=== PATIENT | female | born 1995 | race Caucasian/White ===

== ENCOUNTER 2024-10-03 07:30 | Emergency (ER) | payer OTHER, SELFPAY ==
[2024-10-03] VITALS (7 sets, daily range): BP systolic 105–143; BP diastolic 76–98; BMI 39.5
--- NOTE | 2024-10-03 07:38 | ED.GENMED ---
History of Present Illness
General
Chief Complaint: Abdominal Pain
Source: patient and records
Exam Limitations: none
Time Seen by Provider: 10/03/24 07:38
Nursing documentation reviewed up to this point in time: agreed with
History of Present Illness
History of Present Illness:
29-year-old female presents with left lower abdominal and pelvic pain acute on chronic issue history of endometriosis treated by BOX [employer]ILDER with hormonal control which she has not able to get her menstrual cycle, pain became worse in the past 12
hours sharp into her back and vagina, no fevers mild nausea without vomiting she had an appendectomy, she is never had a diagnostic scope to confirm endometriosis she denies
Past History
Past History
ED Past Medical History: Other (Endometriosis)
ED Past Surgical History: Appendectomy
Social History
Tobacco: Smoker
Alcohol: None
Drug: None
Living: with family
Employment: Employed
Review of Systems
Review of Systems
All Other Systems: Not applicable
Constitutional: Denies fever or fatigue
EENT: Reports no symptoms
Respiratory: Reports no symptoms
Cardiac: Reports no symptoms
ABD/GI: Reports abdominal pain and nausea; Denies vomiting, diarrhea or bloody stools
: Reports no symptoms
Musculoskeletal: Reports no symptoms
Skin: Reports no symptoms
Phy Exam
Physical Exam
Physical Exam:
Physical Exam
General: no apparent distress, not acutely ill
Neck: No jaundice
Heart: s1/s2 regular rate and rhythm, no murmur. equal radial pulses.
Lungs: no acute respiratory distress. clear bilaterally
Abdomen: Soft minimal left lower abdominal tenderness no guarding or rebound
Neuro: alert and oriented. no focal neurological deficits
Skin: no rash
Psychiatric: well kept. interactive and cooperative
Extremities: no edema
Course
Orders/Labs/Results
Orders:
Orders
10/03/24 08:02
IV Insert/Care/Rem.- Treatment PRN
Complete Blood Count/With Diff Urgent
Comprehensive Metabolic Panel Urgent
ESR [Erythrocyte Sed Rate] Urgent
HCG, Serum Qualitative Screen Urgent
Urinalysis Reflex To Culture Urgent
HYDROmorphone [Dilaudid] 0.5 mg IV NOW STA
10/03/24 08:03
CRP [C-Reactive Protein] Urgent
Test Result ONCE
US Pelvis Only (non-obstetric) Urgent
Comment:
Reason For Exam: left adnexal pain,
Vital Signs
Initial and Last Documented VS:
Initial Vital Signs
Temp Pulse Resp BP Pulse Ox
98.3 F 110 16 143/81 100
10/03/24 07:31 10/03/24 07:31 10/03/24 07:31 10/03/24 07:31 10/03/24 07:31
Last Documented Vital Signs
Temp Pulse Resp BP Pulse Ox
98.3 F 110 16 143/81 100
10/03/24 07:31 10/03/24 07:31 10/03/24 07:31 10/03/24 07:31 10/03/24 07:31
MDM/Problems Addressed
Differential Diagnosis Includes:
Ovarian cyst torsion ectopic endometriosis less likely diverticulitis or bowel obstruction
MDM/Problems Addressed:
Left pelvic pain
Chronic conditions affecting care: Previous abdomnial surgery and Other (Endometriosis)
Acute Exacerbation and/or Progression of Chronic Illness: Previous abdomnial surgery and Other (Endometriosis)
*Radiology
Radiology exam reviewed: radiology read reviewed
*Pulse Oximetry
Patient hypoxic: no
*Critical Care Note
Total Time (30-74mins, 75-104mins- exclusive of procedures): Not Applicable
ED Attending Note
-
Portions of this chart may have been created with voice recognition software.� Occasional wrong word or��sound alike� substitutions may have occurred due to the inherent limitations of voice recognition software.
Discharge Plan
Departure
Prescriptions:
No Action
escitalopram oxalate 20 MG tablet
20 mg PO DAILY
norethindrone-e.estradiol-iron [] 1 EACH tablet
1 ea PO DAILY
Interventions
Interventions:
*Risk Screen - Suicide Last Done: 10/03/24 07:31
*General Assessment Last Done: 10/03/24 07:31
*Neglect/Abuse Screening Last Done: 10/03/24 07:31
Discharge Date and Time
Print Language: ROMANIAN
[2024-10-03] MEDS: DILAUDID 0.5 MG IV ×2 (08:20→14:55)
[2024-10-03 08:26] LABS: % Basophils 0.3 % (0-2); % Eosinophils 4.5 % (0-6); % Immature Granulocytes 0.5 % (0-0.5); % Lymphocytes 25.9 % (20.5-51.1); % Neutrophils 62.8 % (42.2-75.2); Absolute Eosinophils 0.6 10^3/uL (0-0.7); Absolute Immature Granulocytes 0.1 10^3/uL (0-0.05); Absolute Lymphocytes 3.3 10^3/uL (1.2-3.4); Absolute Monocytes 0.8 10^3/uL (0.1-0.6); Absolute Neutrophils 7.9 10^3/uL (1.4-6.5); Hematocrit 36.7 % (37.0-47.0); Hemoglobin 12.9 g/dL (12.0-16.0); Mean Corp Hgb Conc. 35.1 g/dL (33.0-37.0); Mean Corpuscular Hgb 29.9 pg (27.0-31.0); Mean Corpuscular Volume 85.2 fL (81.0-99.0); Mean Platelet Volume 8.8 fL (7.4-10.4); Nucleated Red Blood Cells % 0 %; Platelet Count 337 10^3/uL (130-400); Red Blood Cell Count 4.31 10^6/uL (4.20-5.40); Red Cell Dist. Width 12.3 % (11.5-14.5); White Blood Cell Count 12.6 10^3/uL (4.8-10.8)
[2024-10-03 08:55] LABS: Urine Albumin Trace (Neg - Trace); Urine Bilirubin Negative (Negative); Urine Character Very Cloudy (Clear); Urine Color Yellow; Urine Glucose Negative (Negative); Urine Ketone Negative (Negative); Urine Leukocyte 1+ (Negative); Urine Nitrite Negative (Negative); Urine Occult Blood 4+ (Negative); Urine Specific Gravity 1.015 (<1.030); Urine Urobilinogen Negative (Neg - 1+)
[2024-10-03 08:55] LABS: HCG, Serum Qualitative Screen Negative
[2024-10-03 08:59] LABS: ALT (SGPT) 25 U/L (0-35); AST (SGOT) 23 U/L (14-36); Albumin 4.4 g/dl (3.5-5.0); Alkaline Phosphatase 69 U/L (38-126); Blood Urea Nitrogen 10 mg/dl (7-17); Calcium 9.4 mg/dl (8.4-10.2); Carbon Dioxide 17 mmol/L (22-30); Chloride 106 mmol/L (98-107); Estimated Creatinine Clearance > 125 ml/min; Glucose 124 mg/dl (70-99); Potassium 4.3 mmol/L (3.5-5.1); Sodium 141 mmol/L (135-145); Total Bilirubin 0.2 mg/dl (0.2-1.3); Total Protein 6.9 g/dl (6.3-8.2); eGFR > 60.00
[2024-10-03 09:02] LABS: Erythrocyte Sed Rate 20 mm/hour (0-20)
[2024-10-03 09:25] LABS: Urine Bacteria Few (Negative); Urine Red Blood Cell 50-60 /HPF (0-2); Urine Squamous Cell 0-2 /LPF (Few); Urine White Cell 0-2 /HPF (0-5)
[2024-10-03] MEDS: NSS 1000 IV (10:03)
[2024-10-03] MEDS: TORADOL 30 MG IV (10:04)
--- NOTE | 2024-10-03 13:02 | ED.GENMED ---
History of Present Illness
<Chucky Salgado DO - Last Filed: 10/05/24 21:17>
General
Chief Complaint: Abdominal Pain
Time Seen by Provider: 10/03/24 07:38
History of Present Illness
History of Present Illness:
.
Past History
<Chucky Salgado, DO - Last Filed: 10/05/24 21:17>
Past History
ED Past Medical History: Other (Endometriosis)
ED Past Surgical History: Appendectomy
Social History
Tobacco: Smoker
Alcohol: None
Drug: None
Living: with family
Employment: Employed
Phy Exam
<Chucky Salgado DO - Last Filed: 10/05/24 21:17>
Physical Exam
Physical Exam:
.
Course
<Chucky Salgado, DO - Last Filed: 10/05/24 21:17>
Orders/Labs/Results
Orders:
Orders
10/03/24 08:02
IV Insert/Care/Rem.- Treatment PRN
HYDROmorphone [Dilaudid] 0.5 mg IV NOW STA
10/03/24 08:03
Test Result ONCE
US Pelvis W Transvag Combined Urgent
Reason For Exam: left adnexal pain,
10/03/24 08:12
CRP [C-Reactive Protein] Urgent
Comprehensive Metabolic Panel Urgent
HCG, Serum Qualitative Screen Urgent
10/03/24 08:13
Complete Blood Count/With Diff Urgent
ESR [Erythrocyte Sed Rate] Urgent
10/03/24 08:18
Urinalysis Reflex To Culture Urgent
Date Specimen was Collected: 10/03/24
Time Specimen was Collected: 08:14
Urine Microscopic Reflex Cult Urgent
Urine Culture Urgent
RAIMUNDO Source: U
Specimen Description:
Date Specimen was Collected: 10/03/24
Time Specimen was Collected: 08:14
10/03/24 09:38
0.9% Sodium Chloride 1000 ml [Nss] 1,000 ml IV BOLUS
Ketorolac [Toradol] 30 mg IV NOW STA
10/03/24 13:10
CT Abd/pel Without Iv Or Oral Urgent
Comment:
Reason For Exam: hematuria pain
10/03/24 14:49
HYDROmorphone [Dilaudid] 0.5 mg IV NOW STA
Abnormal Lab Results
10/03/24 10/03/24 10/03/24
08:12 08:13 08:18
WBC 12.6 H 10^3/uL
(4.8-10.8)
Hct 36.7 L %
(37.0-47.0)
Abs Immat Gran (auto) 0.1 H 10^3/uL
(0-0.05)
Absolute Neuts (auto) 7.9 H 10^3/uL
(1.4-6.5)
Absolute Monos (auto) 0.8 H 10^3/uL
(0.1-0.6)
Carbon Dioxide 17 L mmol/L
(22-30)
Glucose 124 H mg/dl
(70-99)
C-Reactive Protein 16.90 H mg/L
(0.0-10.00)
Ur Occult Blood Reflex 4+ A
(Negative)
Leukocyte Esterase Rfl 1+ A
(Negative)
Urine RBC 50-60 A /HPF
(0-2)
Urine Bacteria (Reflex) Few A
(Negative)
10/03/24 08:13
10/03/24 08:12
Vital Signs
Initial and Last Documented VS:
Initial Vital Signs
Temp Pulse Resp BP Pulse Ox
98.3 F 110 16 143/81 100
10/03/24 07:31 10/03/24 07:31 10/03/24 07:31 10/03/24 07:31 10/03/24 07:31
Last Documented Vital Signs
Temp Pulse Resp BP Pulse Ox
98.3 F 97 16 121/84 98
10/03/24 07:31 10/03/24 13:02 10/03/24 13:02 10/03/24 14:53 10/03/24 14:53
<Matt Key, DO - Last Filed: 10/03/24 14:53>
Orders/Labs/Results
Orders:
Orders
10/03/24 08:02
IV Insert/Care/Rem.- Treatment PRN
HYDROmorphone [Dilaudid] 0.5 mg IV NOW STA
10/03/24 08:03
Test Result ONCE
US Pelvis W Transvag Combined Urgent
Reason For Exam: left adnexal pain,
10/03/24 08:12
CRP [C-Reactive Protein] Urgent
Comprehensive Metabolic Panel Urgent
HCG, Serum Qualitative Screen Urgent
10/03/24 08:13
Complete Blood Count/With Diff Urgent
ESR [Erythrocyte Sed Rate] Urgent
10/03/24 08:18
Urinalysis Reflex To Culture Urgent
Date Specimen was Collected: 10/03/24
Time Specimen was Collected: 08:14
Urine Microscopic Reflex Cult Urgent
Urine Culture Urgent
RAIMUNDO Source: U
Specimen Description:
Date Specimen was Collected: 10/03/24
Time Specimen was Collected: 08:14
10/03/24 09:38
0.9% Sodium Chloride 1000 ml [Nss] 1,000 ml IV BOLUS
Ketorolac [Toradol] 30 mg IV NOW STA
10/03/24 13:10
CT Abd/pel Without Iv Or Oral Urgent
Comment:
Reason For Exam: hematuria pain
10/03/24 14:49
HYDROmorphone [Dilaudid] 0.5 mg IV NOW STA
Abnormal Lab Results
10/03/24 10/03/24 10/03/24
08:12 08:13 08:18
WBC 12.6 H 10^3/uL
(4.8-10.8)
Hct 36.7 L %
(37.0-47.0)
Abs Immat Gran (auto) 0.1 H 10^3/uL
(0-0.05)
Absolute Neuts (auto) 7.9 H 10^3/uL
(1.4-6.5)
Absolute Monos (auto) 0.8 H 10^3/uL
(0.1-0.6)
Carbon Dioxide 17 L mmol/L
(22-30)
Glucose 124 H mg/dl
(70-99)
C-Reactive Protein 16.90 H mg/L
(0.0-10.00)
Ur Occult Blood Reflex 4+ A
(Negative)
Leukocyte Esterase Rfl 1+ A
(Negative)
Urine RBC 50-60 A /HPF
(0-2)
Urine Bacteria (Reflex) Few A
(Negative)
10/03/24 08:13
10/03/24 08:12
Vital Signs
Initial and Last Documented VS:
Initial Vital Signs
Temp Pulse Resp BP Pulse Ox
98.3 F 110 16 143/81 100
10/03/24 07:31 10/03/24 07:31 10/03/24 07:31 10/03/24 07:31 10/03/24 07:31
Last Documented Vital Signs
Temp Pulse Resp BP Pulse Ox
98.3 F 97 16 121/84 98
10/03/24 07:31 10/03/24 13:02 10/03/24 13:02 10/03/24 14:53 10/03/24 14:53
<Chucky Salgado, DO - Last Filed: 10/05/24 21:17>
*Critical Care Note
Total Time (30-74mins, 75-104mins- exclusive of procedures): Not Applicable
<Chucky Salgado, DO - Last Filed: 10/05/24 21:17>
Update Note
Update Note:
Update, labs noted urine noted culture pending ultrasound report noted
Patient appears comfortable does have hematuria pain was sharp this all could be endometriosis perhaps a stone will check stone search, will need outpatient follow-up either with SOCIAL SERVICE TECHNICIAN urology pending the result of the scan
<Matt Key, DO - Last Filed: 10/03/24 14:53>
Update Note
Update Note:
Update, labs noted urine noted culture pending ultrasound report noted
Patient appears comfortable does have hematuria pain was sharp this all could be endometriosis perhaps a stone will check stone search, will need outpatient follow-up either with SOCIAL SERVICE TECHNICIAN urology pending the result of the scan
2:50 PM care of patient was transitioned pending CT. CT consistent with obstructive kidney stone. Patient feels comfortable going home. Discussed pain control and follow-up with urology
ED Attending Note
<Chucky Salgado, DO - Last Filed: 10/05/24 21:17>
-
Portions of this chart may have been created with voice recognition software.� Occasional wrong word or��sound alike� substitutions may have occurred due to the inherent limitations of voice recognition software.
Discharge Plan
Departure
Patient Disposition: Home (Routine Discharge)
Date of Disposition: 10/03/24
Time of Disposition: 13:12
Patient with high blood pressure during this ER visit?: No
Condition: Good
Discharge Problem:
Kidney stone on left side
Instructions: Kidney Stone, Adult ED
Prescriptions:
New
ibuprofen 600 mg tablet
600 mg PO Q6H PRN (Reason: fever or pain) Qty: 20 0RF
oxycodone-acetaminophen [Percocet] 5-325 mg tablet
1 tab PO Q6HPRN PRN (Reason: pain) Qty: 10 0RF
tamsulosin [Flomax] 0.4 mg Capsule
0.4 mg PO DAILY Qty: 14 0RF
diclofenac potassium 50 mg tablet
50 mg PO BID Qty: 20 0RF
ondansetron 4 mg Tablet,Disintegrating
4 mg PO BIDPRN PRN (Reason: nausea/vomiting) Qty: 10 0RF
oxycodone 5 mg tablet
5 mg PO Q8H PRN (Reason: Pain) Qty: 14 0RF
No Action
norethindrone-e.estradiol-iron [Aurovela Fe 1-20 (28)] 1 mg-20 mcg (21)/75 mg (7) tablet
1 tab PO QPM
lisdexamfetamine 40 mg capsule
40 mg PO DAILY
Rx Instructions:
10/03/24: filled #30/30 day supply on 09/19/24 at [place] [id number] [[id number]]
[facility] Multivitamin
1 tab PO DAILY
cetirizine 10 mg Tablet
10 mg PO HS
ibuprofen 200 mg Tablet
600 mg PO PRN PRN (Reason: pain)
lorazepam 1 mg tablet
1 mg PO DAILYPRN PRN (Reason: anxiety )
Rx Instructions:
10/03/24: filled 30 tabs/30 day supply on 05/31/24 at [place] [id number] [[id number]]
Airborne Gummy 250-11.66 mg Tablet,Chewable
1 tab PO DAILY
Referrals:
Matt Landaverde MD [Active] -
Sol Sanchez MD [Family Provider] -
Activity Restrictions/Additional Instructions:
Please return for any worsening symptoms.
You may return at any time if you have further concerns.
Please follow up with your doctor at the first available appointment, preferably this week.
Please make an appointment to see the urologist.
Thank you for choosing [facility].
Interventions
Interventions:
*Risk Screen - Suicide Last Done: 10/03/24 07:31
*General Assessment Last Done: 10/03/24 07:31
*Neglect/Abuse Screening Last Done: 10/03/24 07:31
ED- Fall Risk Assessment Last Done: 10/03/24 08:27
*ED COVID-19 Vaccine History Last Done: 10/03/24 08:27
*Nursing Disposition Last Done: 10/03/24 15:22
QV-Cfygkb-Edxlkowcju Assessment Last Done: 10/03/24 08:30
Discharge Date and Time
Discharge Date/Time: 10/03/24 15:22
Print Language: TUVALUAN
== END 2024-10-03 15:22 | disposition home or self-care (01) ==
LOC: EMR 07:30
PROVIDERS: EMERGENCY PHYSICIAN Emergency Medicine; FAMILY PHYSICIAN Internal Medicine
DX: N20.0 Calculus of kidney (principal); F17.200 Nicotine dependence, unspecified, uncomplicated
CPT/HCPCS: 99285; 96374; 96375; 96361; 96376; 74176; 76830; 76856; 80053; 81003; 81015; 84703; 85025; 85652; 86140; 87086

== ENCOUNTER 2024-10-08 18:56 | Inpatient (IN) | payer OTHER, SELFPAY ==
[2024-10-08 14:53] VITALS: BP 182/103
[2024-10-08] MEDS: NSS 1000 IV (15:52)
[2024-10-08] MEDS: TORADOL 30 MG IV (15:52)
[2024-10-08 16:00] LABS: Urine Albumin Negative (Neg - Trace); Urine Bilirubin Negative (Negative); Urine Character Clear (Clear); Urine Color Yellow; Urine Glucose Negative (Negative); Urine Ketone Negative (Negative); Urine Leukocyte 1+ (Negative); Urine Nitrite Negative (Negative); Urine Occult Blood 4+ (Negative); Urine Urobilinogen Negative (Neg - 1+)
[2024-10-08 16:04] VITALS: BP 136/90; BMI 39.2
[2024-10-08 16:18] LABS: % Basophils 0.4 % (0-2); % Eosinophils 3.5 % (0-6); % Immature Granulocytes 0.3 % (0-0.5); % Lymphocytes 20.7 % (20.5-51.1); % Monocytes 6.6 % (1.7-9.3); % Neutrophils 68.5 % (42.2-75.2); Absolute Basophils 0.1 10^3/uL (0-0.2); Absolute Eosinophils 0.5 10^3/uL (0-0.7); Absolute Lymphocytes 2.8 10^3/uL (1.2-3.4); Absolute Monocytes 0.9 10^3/uL (0.1-0.6); Absolute Neutrophils 9.4 10^3/uL (1.4-6.5); Hematocrit 37.2 % (37.0-47.0); Hemoglobin 12.9 g/dL (12.0-16.0); Mean Corp Hgb Conc. 34.7 g/dL (33.0-37.0); Mean Corpuscular Hgb 30.3 pg (27.0-31.0); Mean Corpuscular Volume 87.3 fL (81.0-99.0); Mean Platelet Volume 8.6 fL (7.4-10.4); Nucleated Red Blood Cells % 0 %; Platelet Count 305 10^3/uL (130-400); Red Blood Cell Count 4.26 10^6/uL (4.20-5.40); Red Cell Dist. Width 12.3 % (11.5-14.5); White Blood Cell Count 13.7 10^3/uL (4.8-10.8)
[2024-10-08 16:21] LABS: Urine Bacteria Few (Negative); Urine Red Blood Cell 30-40 /HPF (0-2)
--- NOTE | 2024-10-08 16:26 | ED.GENMED ---
History of Present Illness
General
Chief Complaint: Flank Pain
Source: patient
Time Seen by Provider: 10/08/24 15:40
History of Present Illness
History of Present Illness:
29-year-old female, recently diagnosed with a left distal ureteral kidney stone 5 days ago presenting back to the emergency department for continued left flank pain that radiates down into the groin area and unrelieved with the medication she was
prescribed to go home with including diclofenac, oxycodone and Flomax. Patient states that she did feel little bit of chills today but also notes that her room was quite cold, unaware of any fevers despite having a low-grade temperature of 99.8
here. Notes she really has not eaten or drank much today as well. Last medications were taken around 9 AM. No other concerns.
Past History
Past History
ED Past Medical History: Other (Endometriosis)
ED Past Surgical History: Appendectomy
Social History
Tobacco: Smoker
Alcohol: None
Drug: None
Personal: Single
Living: with family
Employment: Employed
Review of Systems
Review of Systems
All Other Systems: ROS reviewed and negative except as documented in HPI and ROS
Phy Exam
Physical Exam
Physical Exam:
GENERAL: Alert , appears uncomfortable
EYE: clear conjunctiva b/l
HEAD: NCAT
ENT: mmm.
CARDIAC: Regular rate and rhythm .
LUNGS: Clear breath sounds bilaterally, no acute respiratory distress, no wheezes/rales/rhonchi
ABDOMEN: Soft, mild left lower abd ttp, no r/g, moderate left cvat
NEUROLOGICAL: Alert and oriented
SKIN: Warm and dry, skin intact.
MUSCULOSKELETAL: No edema, well perfused.
PSYCH: Normal and appropriate interaction.
Scores
Heart Failure Risk
Heart Failure Risk Score: Not Applicable
Heart Score for Chest Pain Patients
STEMI patient?: Not applicable
Withdrawal Assessment of Alcohol
Withdrawal Assessment Completed?: Not applicable
Course
Orders/Labs/Results
Orders:
Orders
10/08/24 15:41
0.9% Sodium Chloride 1000 ml [Nss] 1,000 ml IV BOLUS
Ketorolac [Toradol] 30 mg IV NOW STA
10/08/24 15:42
CT Abd/pel Without Iv Or Oral Urgent
Comment:
Reason For Exam: flank pain, known kidney stone, fever
Test Result ONCE
10/08/24 15:46
Complete Blood Count/With Diff Urgent
Comprehensive Metabolic Panel Urgent
HCG, Serum Qualitative Screen Urgent
Lactic Acid Q4H
Comment: CANCEL 2nd LACTIC ACID IF 1st LACTIC ACID IS LESS THAN 2
Lipase Urgent
Urinalysis Reflex To Culture Urgent
Date Specimen was Collected: 10/08/24
Time Specimen was Collected: 15:45
Urine Microscopic Reflex Cult Urgent
Urine Culture Urgent
RAIMUNDO Source: U
Specimen Description:
Date Specimen was Collected: 10/08/24
Time Specimen was Collected: 15:45
10/08/24 17:00
Morphine Sulfate 2 mg IV NOW STA
10/08/24 18:27
CefTRIAXone [Rocephin] 1,000 mg IV NOW STA
10/08/24 18:44
Lorazepam [Ativan] 1 mg PO DAILYPRN PRN
10/08/24 18:45
Admit/Transfer Patient As Directed
Co-Sign Provider:
Level of Care: Inpatient admission
Assign to:: Medical/Surgical
Physician / Group: hospitalist
Diagnosis: Urolithiasis
Reason for Hospitalization: kidney stone
Expected length of stay greater than two midnights?: Yes
ELOS- Estimated Length of Stay in days: 2
I certify the patient meets the requirements for IP care: Yes
PRN Pain Medication Management As Directed
May give lesser potent ordered pain med per pt: Yes
preference::
Protocol:: Medication orders for pain may be administered in a
manner that supports deferring to patient preference
when the pt is:
- Requesting an ordered lesser potent pain medication.
Least to most potent pain medications are defined
as: acetaminophen < NSAID < tramadol < opioids
(morphine, oxycodone, hydromorphone).
- Requesting a lesser dose of the same medication IF
ORDERED.
- Requesting a less intrusive route of administration
if both routes are prescribed by the provider (PO <
IV).
10/08/24 18:46
Code Status As Directed
Resuscitation Status: Full Code
10/08/24 22:00
Cetirizine HCl [Zyrtec] 10 mg PO HS
10/09/24 08:00
Tamsulosin [Flomax] 0.4 mg PO DAILY
lisdexamfetamine 40 mg PO DAILY
10/09/24 18:00
norethindrone-e.estradiol-iron [Aurovela Fe 1-20 (28)] 1 tablet PO QPM
Abnormal Lab Results
10/08/24
15:46
WBC 13.7 H 10^3/uL
(4.8-10.8)
Absolute Neuts (auto) 9.4 H 10^3/uL
(1.4-6.5)
Absolute Monos (auto) 0.9 H 10^3/uL
(0.1-0.6)
Glucose 112 H mg/dl
(70-99)
Ur Occult Blood Reflex 4+ A
(Negative)
Leukocyte Esterase Rfl 1+ A
(Negative)
Urine RBC 30-40 A /HPF
(0-2)
Urine WBC (Reflex) 11-15 A /HPF
(0-5)
Urine Bacteria (Reflex) Few A
(Negative)
10/08/24 15:46
10/08/24 15:46
Vital Signs
Initial and Last Documented VS:
Initial Vital Signs
Temp Pulse Resp BP Pulse Ox
99.8 F 120 16 182/103 98
10/08/24 14:53 10/08/24 14:53 10/08/24 14:53 10/08/24 14:53 10/08/24 14:53
Last Documented Vital Signs
Temp Pulse Resp BP Pulse Ox
98.2 F 93 16 136/87 96
10/08/24 19:20 10/08/24 19:20 10/08/24 19:20 10/08/24 19:20 10/08/24 19:20
MDM/Problems Addressed
Differential Diagnosis Includes:
Continued ureteral colic, cystitis, pyelonephritis, worsening hydronephrosis/hydroureter
MDM/Problems Addressed:
29-year-old female presenting back to the emergency department for reevaluation of worsening left flank/groin pain in the setting of a known distal left ureteral stone that measured up currently 4-1/2 mm. 5 days ago there was no hydronephrosis or
hydroureter. No signs of infection. On arrival today patient is a low-grade temperature of 99.8 and was tachycardic to 120 bpm. She does appear uncomfortable. Toradol ordered for pain control. Will repeat labs including lactic acid. Repeat CT
scan ordered. Clinical concern for early potential sign of infection. Disposition pending.
*Pulse Oximetry
Patient hypoxic: no
*Critical Care Note
Total Time (30-74mins, 75-104mins- exclusive of procedures): Not Applicable
Data Reviewed
Review of Other/Old Records Reveals: Labs, Records and Radiology Studies
Comment
Comment:
4:53 PM: Patient does note improved pain however still uncomfortable. Additional 2 mg of morphine added for pain control
Patient Management
Discussion with other providers: Hospitalist and Business Performance Analyst
Escalation/DeEscalation of care consider admission/obs:
Patient CT scan shows continued 4 mm stone at the left UVJ. Patient does note her pain is more improved following the morphine but still with the discomfort. Her urine does show 11-15 WBCs. I ran the case by urology who states that if patient
does feel well enough to go home would consider oral antibiotics for discharge with return precautions. Ultimately more comfortable staying given this is a return visit and has not had improvement over the 5 days since her original diagnosis.
Hospitalist team is aware and accepts for continued evaluation and treatment.
ED Attending Note
-
Portions of this chart may have been created with voice recognition software.� Occasional wrong word or��sound alike� substitutions may have occurred due to the inherent limitations of voice recognition software.
Discharge Plan
Departure
Patient Disposition: Admit
Date of Disposition: 10/08/24
Time of Disposition: 18:28
Presentation/result/management discussed w/ accepting MD/DO: Hospitalist
Patient with high blood pressure during this ER visit?: Yes
Discharge Problem:
Ureterolithiasis, UTI (urinary tract infection)
Interventions
Interventions:
*Risk Screen - Suicide Last Done: 10/08/24 14:53
*General Assessment Last Done: 10/08/24 14:53
*Neglect/Abuse Screening Last Done: 10/08/24 14:53
ED- Fall Risk Assessment Last Done: 10/08/24 16:07
*ED COVID-19 Vaccine History Last Done: 10/08/24 14:53
GX-Grnsgv-Usthobtvcz Assessment Last Done: 10/08/24 16:00
ED-Female Genitourinary Assessment Last Done: 10/08/24 16:00
[2024-10-08 16:33] LABS: HCG, Serum Qualitative Screen Negative
[2024-10-08 16:37] LABS: ALT (SGPT) 24 U/L (0-35); AST (SGOT) 31 U/L (14-36); Albumin 4.2 g/dl (3.5-5.0); Alkaline Phosphatase 57 U/L (38-126); Blood Urea Nitrogen 11 mg/dl (7-17); Calcium 9.3 mg/dl (8.4-10.2); Carbon Dioxide 24 mmol/L (22-30); Chloride 101 mmol/L (98-107); Estimated Creatinine Clearance 116 ml/min; Glucose 112 mg/dl (70-99); Lipase 34 U/L (23-300); Potassium 3.9 mmol/L (3.5-5.1); Sodium 137 mmol/L (135-145); Total Bilirubin 0.4 mg/dl (0.2-1.3); Total Protein 6.6 g/dl (6.3-8.2); eGFR > 60.00
[2024-10-08 16:38] LABS: Lactic Acid 1.6 mmol/L (0.7-2.0)
[2024-10-08] MEDS: MORPHINE SULFATE 2 MG IV ×2 (17:08→20:32)
[2024-10-08 17:16] VITALS: BP 118/78
--- NOTE | 2024-10-08 18:50 | HPS.HSE ---
Family Physician
-
Family Physician: Sol Sanchez
Chief Complaint
-
Left flank pain.
History of Present Illness
This is a 29-year-old female with past medical history significant for obesity, anxiety and hyperlipidemia who presents to the emergency department for ongoing episode of left-sided flank pain which she was originally found to have a 4 mm left
ureteral stone 5 days ago.
Patient was diagnosed with a stone and sent home on the usual treatment of NSAIDs, opioids and Flomax. She was taking his medications consistently but continued to have flank pain. Overnight today the patient reported persistent pain and sense of
fullness the pain was localized to the left flank radiating to the pelvis and left groin. She did not have dysuria. She denied any chills. She did not measure her temperature at home but reported to have low-grade temps on arrival in the ED. She
denies any nausea or vomiting. Patient denies prior history of kidney stones. She does have a family history of recurrent kidney stone.
In the ED she was afebrile, blood pressure was 118/78 with a pulse of 98. Chemistries BUN/creatinine were unremarkable. CBC was notable for a leukocytosis to 13,000. UA was positive for blood pyuria and a few bacteriuria. CT of the abdomen
pelvis shows a 4 mm left UVJ stone with hydronephrosis.
Medical History
Past Medical History
Past Medical History: Reports Hypercholesterolemia
Additional Past Medical History:
Endometriosis
Past Surgical History: Reports Appendectomy
Social History
Tobacco: Non-smoker
Alcohol: Occasional
Drug: None
Personal:
Living: With Family
Employment: Employed
Family History
Family History: Not pertinent
Allergies / Home Medications
Allergies reflects when Allergies were last updated in [facility].
Home Medications with original date entered in [facility]
Allergy/Medication List:
Allergies
Allergy/AdvReac Type Severity Reaction Status Date / Time
bupropion [From Wellbutrin] Allergy Rash Verified 10/08/24 16:16
Home Medications
Jason Women's Multivitamin 1 tab PO DAILY Supplement 10/03/24
cetirizine 10 mg tablet 10 mg PO HS Allergies 10/03/24
diclofenac potassium 50 mg tablet 50 mg PO BID #20 tabs 10/03/24
lisdexamfetamine 40 mg capsule 40 mg PO DAILY Neurological Condition 10/03/24
lorazepam 1 mg tablet 1 mg PO DAILYPRN PRN anxiety 10/03/24
tnxyjzzi-xazfkxkl-mgh C 250 mg-herbal no.124 11.66 mg chewable tablet (Airborne Gummy) 1 tab PO DAILY Allergies 10/03/24
norethindrone 1 mg-ethinyl estradiol 20 mcg (21)-iron 75 mg (7) tablet (Aurovela Fe 1-20 (28)) 1 tab PO QPM Hormonal Agent 10/03/24
oxycodone 5 mg tablet 5 mg PO Q8H PRN Pain #14 tabs 10/03/24
tamsulosin 0.4 mg capsule (Flomax) 0.4 mg PO DAILY #14 caps 10/03/24
Review of Systems
-
History Source: Patient
Constitutional: Reports No Symptoms
EENT: Reports No Symptoms
Respiratory: Reports No Symptoms
Cardiac: Reports No Symptoms
Abdomen/GI: Reports Abdominal Pain
: Reports Flank Pain
Musculoskeletal: Reports No Symptoms
Skin: Reports No Symptoms
Neurological: Reports No Symptoms
Endocrine: Reports No Symptoms
Hematologic/Lymphatic: Reports No Symptoms
Psych: Reports No Symptoms
Physical Exam
Vital Signs
Vital Signs
Temp Pulse Resp BP Pulse Ox
98 F 98 16 118/78 98
10/08/24 16:04 10/08/24 17:16 10/08/24 17:16 10/08/24 17:16 10/08/24 17:16
Physical Exam
General: Well Developed, Well Nourished, No Apparent Distress and Conversant
HEENT: NormoCephalic, Anicteric, Moist mucous membranes and Atraumatic
Respiratory: Clear
Cardiac: S1/S2 and Regular Rhythm
Breast: Deferred by me
GI: Soft, Non Tender, Non Distended and Normal Bowel Sounds
Genito-urinary: Costovertebral angle tend
Musculoskeletal: No Cyanosis and No Edema
Skin: Warm
Neuro: AO x 3
Hematologic/Lymphatic: No Lymphadenopathy
Psych: Calm
Laboratory Results
-
10/08/24 15:46
10/08/24 15:46
Laboratory Results
Lactic Acid Cancelled 10/08/24 19:45
Total Bilirubin 0.4 mg/dl (0.2-1.3) 10/08/24 15:46
AST 31 U/L (14-36) 10/08/24 15:46
ALT 24 U/L (0-35) 10/08/24 15:46
Alkaline Phosphatase 57 U/L (38-126) 10/08/24 15:46
Lipase 34 U/L (23-300) 10/08/24 15:46
Data Reviewed
-
CT Scan: Report Reviewed by me
Lab Data: Labs Reviewed by me
Old Records: Reviewed
Impression/Plan
-
IMPRESSION:
29 y.o with persistent 4mm UVJ stone 1st diagnosed 5 days ago and trial of spontaneous passage returns with continued flank pain, and now has hydronephrosis with pyuria and some bacteruria as well as peripheral leukocytosis. No sepsis.
PLAN:
1. Obstructing L UVJ stone -
- admit to med/surg
- npo at breakfast
- continue tamsulosin
-LR at 125 ml/hr
- strain urine
- pain control and antiemetics
- ceftriaxone 1 g iv q 24 h
- urology consulted and aware
DVT PPX - lovenox
Code Status - Full Code
--- NOTE | 2024-10-08 19:03 | HPS.HSE ---
Family Physician
-
Family Physician: Sol Sanchez
Chief Complaint
-
Left-sided flank pain
History of Present Illness
This is a 29-year-old female with past medical history significant for obesity, anxiety and hyperlipidemia who presents to the emergency department for ongoing episode of left-sided flank pain which she was originally found to have a 4 mm left
ureteral stone 5 days ago.
Patient was diagnosed with a stone and sent home on the usual treatment of NSAIDs, opioids and Flomax. She was taking his medications consistently but continued to have flank pain. Overnight today the patient reported persistent pain and sense of
fullness the pain was localized to the left flank radiating to the pelvis and left groin. She did not have dysuria. She denied any chills. She did not measure her temperature at home but reported to have low-grade temps on arrival in the ED. She
denies any nausea or vomiting. Patient denies prior history of kidney stones. She does have a family history of recurrent kidney stone.
In the ED she was afebrile, blood pressure was 118/78 with a pulse of 98. Chemistries BUN/creatinine were unremarkable. CBC was notable for a leukocytosis to 13,000. UA was positive for blood pyuria and a few bacteriuria. CT of the abdomen
pelvis shows a 4 mm left UVJ stone with hydronephrosis.
Medical History
Allergies / Home Medications
Allergies reflects when Allergies were last updated in [facility].
Home Medications with original date entered in [facility]
Physical Exam
Vital Signs
Vital Signs
Temp Pulse Resp BP Pulse Ox
98 F 98 16 118/78 98
10/08/24 16:04 10/08/24 17:16 10/08/24 17:16 10/08/24 17:16 10/08/24 17:16
Laboratory Results
-
10/08/24 15:46
10/08/24 15:46
Laboratory Results
Lactic Acid Cancelled 10/08/24 19:45
Total Bilirubin 0.4 mg/dl (0.2-1.3) 10/08/24 15:46
AST 31 U/L (14-36) 10/08/24 15:46
ALT 24 U/L (0-35) 10/08/24 15:46
Alkaline Phosphatase 57 U/L (38-126) 10/08/24 15:46
Lipase 34 U/L (23-300) 10/08/24 15:46
Impression/Plan
-
IMPRESSION:
PLAN:
[2024-10-08] MEDS: ROCEPHIN 1000 MG IV (19:15)
[2024-10-08 19:20] VITALS: BP 136/87
[2024-10-08 20:06] VITALS: BMI 39.0
[2024-10-08 20:07] VITALS: BP 131/85
[2024-10-08] MEDS: ZYRTEC 10 MG PO (20:32)
[2024-10-08] MEDS: LR 1000 IV (20:33)
[2024-10-08] MEDS: ZOFRAN 4 MG IV (20:39)
--- NOTE | 2024-10-08 21:00 | PTCARENOTE ---
pt is aaox3, reports abd pain, flank, and groin pain. pt also states that she is nauseous. - see jan re: medications w/ +eff. pt is informed about rn needing to strain urine. pt is oriented to room w/ call colunga in reach.
[2024-10-08 23:03] VITALS: BP 135/84
[2024-10-09] VITALS (9 sets, daily range): BP systolic 104–120; BP diastolic 66–77
[2024-10-09] MEDS: LR 1000 IV (04:34)
--- NOTE | 2024-10-09 08:10 | CONS.URO ---
Consultation
-
Performing Provider: Peffer
Reason for Consultation: Kidney stone
Medical History
History of Present Illness
29F with no prior hx of stones
Presented 10/03 to ED with flank pain and found to have a 4mm L distal ureteral stone
Trial of passage at home with worsening pain not responding to PO meds and came back to ER 10/08
She had some possible chills at home but no measured fevers
In the ED her temp was mildly elevated but no signs of sepsis on presentation
Mild leukocytosis
Urinalysis not grossly positive for UTI
She was admitted for failed trial of passage
Ceftriaxone was started
Past Medical History
Past Medical History: HTN
Past Surgical History: None
Social History
Tobacco: Non-smoker
Drug: None
Family History
Family History: Other (Kidney stones - mother)
Allergies/Home Medications
Allergies
Allergy/AdvReac Type Severity Reaction Status Date / Time
bupropion [From Wellbutrin] Allergy Rash Verified 10/08/24 16:16
Home Medications
�Medication �Instructions �Recorded �Confirmed �Type
Jason Women's Multivitamin 1 tab PO DAILY Supplement 10/03/24 10/08/24 History
cetirizine 10 mg tablet 10 mg PO HS Allergies 10/03/24 10/08/24 History
diclofenac potassium 50 mg tablet 50 mg PO BID #20 tabs 10/03/24 10/08/24 Rx
lisdexamfetamine 40 mg capsule 40 mg PO DAILY Neurological 10/03/24 10/08/24 History
Condition
lorazepam 1 mg tablet 1 mg PO DAILYPRN PRN anxiety 10/03/24 10/08/24 History
mibajikc-bhdimcnq-ynz C 250 1 tab PO DAILY Allergies 10/03/24 10/08/24 History
mg-herbal no.124 11.66 mg
chewable tablet (Airborne Gummy)
norethindrone 1 mg-ethinyl 1 tab PO QPM Hormonal Agent 10/03/24 10/08/24 History
estradiol 20 mcg (21)-iron 75 mg
(7) tablet (Aurovela Fe 1-20 (28))
oxycodone 5 mg tablet 5 mg PO Q8H PRN Pain #14 tabs 10/03/24 10/08/24 Rx
tamsulosin 0.4 mg capsule (Flomax) 0.4 mg PO DAILY #14 caps 10/03/24 10/08/24 Rx
Physical Exam
Vital Signs
Vital Signs
Temp Pulse Resp BP Pulse Ox
98.5 F 84 16 120/77 97
10/09/24 07:46 10/09/24 07:46 10/09/24 07:46 10/09/24 07:46 10/09/24 07:46
Physical Exam
General: Well Developed, Well Nourished and No Apparent Distress
Respiratory: Clear and Non Labored Respirations
GI: Soft and Non Tender
Skin: Warm and Dry
Neuro: AO x 3
Psych: Calm and Intact Judgement
Assessment / Plan
-
29F with failed trial of passage for 4mm L distal ureteral stone
Low grade temps without fever or sepsis
- Discussed options of continued trial of passage vs intervention. Given possible developing infection and severe pain would not recommend further trial of passage
- OR for cystoscopy, L ureteral stent, possible ureteroscopy and laser lithotripsy if no gross purulence in obstructed kidney
- NPO
- Continue ceftriaxone
- IVF
- Strain urine
- Tamsulosin
Data Reviewed
-
CT Scan: Image personally visualized and interpreted
Lab Data: Labs Reviewed
[2024-10-09] MEDS: FLOMAX 0.4 MG PO (08:22)
[2024-10-09 08:32] LABS: Hematocrit 34.9 % (37.0-47.0); Hemoglobin 11.4 g/dL (12.0-16.0); Mean Corp Hgb Conc. 32.7 g/dL (33.0-37.0); Mean Corpuscular Hgb 29.8 pg (27.0-31.0); Mean Corpuscular Volume 91.1 fL (81.0-99.0); Mean Platelet Volume 8.9 fL (7.4-10.4); Platelet Count 284 10^3/uL (130-400); Red Blood Cell Count 3.83 10^6/uL (4.20-5.40); Red Cell Dist. Width 12.4 % (11.5-14.5); White Blood Cell Count 8.9 10^3/uL (4.8-10.8)
[2024-10-09 08:59] LABS: Blood Urea Nitrogen 9 mg/dl (7-17); Calcium 8.9 mg/dl (8.4-10.2); Carbon Dioxide 25 mmol/L (22-30); Chloride 107 mmol/L (98-107); Estimated Creatinine Clearance > 125 ml/min; Glucose 109 mg/dl (70-99); Potassium 4.5 mmol/L (3.5-5.1); Sodium 141 mmol/L (135-145); eGFR > 60.00
--- NOTE | 2024-10-09 10:39 | CM ---
CM reviewed chart, initial assessment completed, patients mother present. Patient resides with her family in a multiple story home, one step to enter. Patient independent with ADLs/IADLS. Patient confirms PCP Sol Sanchez, pharmacy [facility],
confirms prescription coverage. Patient denies insecurities at home. Patient remains on IV medications. CM will continue to follow for all discharge planning needs.
Plan; home with family, no needs likely.
--- NOTE | 2024-10-09 13:19 | W.IMMPOSTOP ---
Surgical Immed Post Op Note
-
Primary Surgeon: Peffer
Assisting Surgeon: -
Pre-op Diagnosis: L ureteral stone
Post-op Diagnosis: same
Procedure Performed: L ULS
Anesthesia Type: gen
Specimen / Cultures: stone
Estimated Blood Loss: none
Complications: none
Operative Findings: stent on string, stone removed
--- NOTE | 2024-10-09 15:24 | W.PN.HOSP.TC ---
Today's Communication/Plan
-
See plan
Assessment / Plan
Assessment / Plan
Patient seen and examined prior to urologic procedure
Left ureteral stone with obstructive uropathy and mild hydronephrosis.
No evidence of infection.
Underwent successful cystoscopy with stent placement and stone removal.
Patient will be monitored for postprocedure recovery while transferred to urology service.
Anticipated Discharge: Within 24 hours
Subjective/Interval History
-
Date of Service: October 09, 2024
Objective Data
-
Labs:
Laboratory Results
10/09/24
07:46
WBC 8.9
Hgb 11.4 L
Hct 34.9 L
Plt Count 284
Sodium 141
Potassium 4.5
Chloride 107
Carbon Dioxide 25
BUN 9
Creatinine 0.8
Glucose 109 H
Calcium 8.9
Vital Signs:
Vital Signs
Temp Pulse Resp BP Pulse Ox
98.0 F 99 18 113/74 94
10/09/24 15:20 10/09/24 15:20 10/09/24 15:20 10/09/24 15:20 10/09/24 15:20
I&O
10/08/24 10/09/24 10/10/24
06:59 06:59 06:59
Intake Total 1250 / 1250 300 / 300
Output Total 700 / 700 110 / 110
Balance 550 / 550 190 / 190
Physical Exam
-
General: Well Developed and No Apparent Distress
HEENT: Normocephalic, Atraumatic and Moist Mucous Membranes
Respiratory: Clear to Auscultation
Cardiac: Regular Rhythm and S1/S2; Negative Murmur, Rub or Gallop
GI: Soft, Nontender, Nondistended and Normal Bowel Sounds; Negative Organomegaly
Rectal: Deferred by Provider
Musculoskeletal: No Clubbing, No Cyanosis and No Edema
Skin: Negative Rash
Neuro: Nonfocal/Grossly Intact
[2024-10-09] MEDS: Pyridium 200 MG PO (16:07)
== END 2024-10-09 17:01 | disposition home or self-care (01) | DRG 661 ==
LOC: 4 WEST ACU 18:56
PROVIDERS: Physician Assistant Medical; ADMITTING PHYSICIAN Internal Medicine; ATTENDING PHYSICIAN Internal Medicine; CONSULT PHYSICIAN Urology; EMERGENCY PHYSICIAN Emergency Medicine; FAMILY PHYSICIAN Internal Medicine
PROC: 0T778DZ Dilation of Left Ureter with Intraluminal Device, Via Natural or Artificial Opening Endoscopic (ICD-10-PCS; 2024-10-09)
PROC: 0WCR8ZZ Extirpation of Matter from Genitourinary Tract, Via Natural or Artificial Opening Endoscopic (ICD-10-PCS; 2024-10-09)
DX: N13.2 Hydronephrosis with renal and ureteral calculous obstruction (principal); E78.00 Pure hypercholesterolemia, unspecified; F41.9 Anxiety disorder, unspecified; I10 Essential (primary) hypertension; N80.9 Endometriosis, unspecified; E66.9 Obesity, unspecified; Z68.39 Body mass index [BMI] 39.0-39.9, adult; Z79.899 Other long term (current) drug therapy
CPT/HCPCS: 74176; 74420; 76000; 80048; 80053; 81003; 81015; 82365; 83605; 83690; 84703; 85025; 85027; 87086; 96361; 96374; 96375; 99285; A4300; C1758; C1769; C1894; C2617

== ENCOUNTER → 2025-08-29 17:46 | Outpatient (REF) | payer OTHER, SELFPAY | LOC: RAD 17:46 | PROVIDERS: ATTENDING PHYSICIAN Hospitalist | DX: D72.829 Elevated white blood cell count, unspecified (principal) | CPT/HCPCS: 71046 ==